=== PATIENT | female | born 1965 | race Two or more races ===

== ENCOUNTER 2017-12-22 08:34 | Emergency (ER) | payer MEDICAID ==
[~2017-12-22] VITALS: Ht 147.3 cm; Wt 72.6 kg
--- NOTE | 2017-12-22 09:21 | Emergency Room Report ---
History of Present Illness General Chief Complaint: Pain Source: Patient Present Illness HPI 52-year-old female resents ED for evaluation. Patient complaining of left hand pain started around 3 AM. Denies trauma. States that she works yesterday and often required to do heavy lifting. Pain is throbbing, 8 out of 10, nonradiating. Denies any other injuries. No other aggravating relieving factors. Denies any other associated symptoms Allergies: Coded Allergies: No Known Allergies (Unverified , 12/22/17) Patient History Past Medical History: none Past Surgical History: none Pertinent Family History: none Social History: Denies: smoking, alcohol use, drug use Now: No Immunizations: UTD Reviewed Nursing Documentation: PMH: Agreed; PSxH: Agreed Nursing Documentation-PMH Past Medical History: No Stated History Review of Systems All Other Systems: negative except mentioned in HPI Physical Exam Vital Signs Date Time Temp Pulse Resp B/P (MAP) Pulse Ox O2 Delivery O2 Flow Rate FiO2 12/22/17 08:49 98.4 71 16 152/82 94 Room Air 98.4 Sp02 EP Interpretation: reviewed, normal General Appearance: no apparent distress, alert, GCS 15, non-toxic Head: normocephalic, atraumatic Eyes: bilateral eye normal inspection, bilateral eye PERRL ENT: hearing grossly normal, normal pharynx, no angioedema, normal voice Neck: full range of motion, supple/symm/no masses Respiratory: chest non-tender, lungs clear, normal breath sounds, speaking full sentences Cardiovascular #1: regular rate, rhythm, no edema Cardiovascular #2: 2+ carotid (R), 2+ carotid (L), 2+ radial (R), 2+ radial (L) , 2+ dorsalis pedis (R), 2+ dorsalis pedis (L) Gastrointestinal: normal bowel sounds, non tender, soft, non-distended, no guarding, no rebound Rectal: deferred Genitourinary: normal inspection, no CVA tenderness Musculoskeletal: back normal, gait/station normal, normal range of motion, tender - L hand Neurologic: alert, oriented x3, responsive, motor strength/tone normal, sensory intact, speech normal Psychiatric: judgement/insight normal, memory normal, mood/affect normal, no suicidal/homicidal ideation Reflexes: 3+ bicep (R), 3+ bicep (L), 3+ tricep (R), 3+ tricep (L), 3+ knee (R) , 3+ knee (L) Skin: normal color, no rash, warm/dry, well hydrated Lymphatic: no adenopathy Procedures Splinting Splinting : Consent: Verbal Pre-Made Type: velcro Splint: thumb spica Pre-Proc Neuro Vasc Exam: normal Post-Proc Neuro Vasc Exam: normal Patient Tolerated: Well Complications: None Medical Decision Making Diagnostic Impression: Primary Impression: Hand injury Qualified Codes: S69.92XA - Unspecified injury of left wrist, hand and finger( s), initial encounter ER Course Hospital Course 52-year-old F presents to ED complaining of L hand pain Differential diagnoses include: Fracture, dislocation, sprain, contusion Clinical course Patient placed on stretcher. After initial history and physical, I ordered pain medications and Xrays of L hand Xrays prelim read shows no acute fracture/dislocation. placed in thumb spica splint given crutches Diagnosis - hand injury Stable and discharged to home with prescription for Motrin. apply ice, keep elevated. weight bear as tolerated. Followup with PMD. Return to ED if symptoms recur or worsen Other X-Ray Diagnostic Results Other X-Ray Diagnostic Results : X-Ray ordered: L hand # of Views/Limited Vs Complete: 3 View Indication: Pain EP Interpretation: Yes Interpretation: no dislocation, no soft tissue swelling, no fractures Impression: No acute disease Electronically Signed by: Electronically signed by Rony Schmitt MD Last Vital Signs Date Time Temp Pulse Resp B/P (MAP) Pulse Ox O2 Delivery O2 Flow Rate FiO2 12/22/17 08:49 98.4 71 16 152/82 94 Room Air 98.4 Status: improved Disposition: HOME, SELF-CARE Condition: Stable Scripts Ibuprofen* (MOTRIN*) 600 Mg Tablet 600 MG ORAL Q8H PRN for For Pain, #30 TAB 0 Refills Prov: Rony Schmitt MD 12/22/17 Rony Schmitt MD Dec 22, 2017 09:21
[2017-12-22] MEDS ORDERED: IBUPROFEN600 MG ORAL (10:10)
[2017-12-22 10:34] VITALS: BP 120/78
--- NOTE | 2017-12-22 15:08 | Diagnostic Imaging Report ---
Indication: Reason For Exam: PAIN Technique: 3 views left hand Comparison: none Findings: No acute fractures. No dislocations. The joint spaces are preserved. Impression: Negative
== END 2017-12-22 10:34 | disposition home or self-care (01) ==
LOC: EMR 09:25
DX: S69.82XA Other specified injuries of left wrist, hand and finger(s), initial encounter (principal); X50.0XXA Overexertion from strenuous movement or load, initial encounter; Y92.9 Unspecified place or not applicable
CPT/HCPCS: 99283